=== PATIENT | female | born 1995 | race Caucasian/White ===

== ENCOUNTER 2021-01-23 18:18 | Emergency (ER) | payer MEDICAID ==
[~2021-01-23] VITALS: Ht 162.6 cm; Wt 51.0 kg
[2021-01-23 18:56] LABS: URINE HCG NEGATIVE (NEG)
[2021-01-23 18:57] LABS: CLARITY,URINE TURBID (Clear); COLOR,URINE BROWN (Yellow); GLUCOSE, URINE NEGATIVE (Neg); KETONES,URINE NEGATIVE (Neg); LEUKOCYTE ESTERASE ,URINE TRACE (Neg); NITRITES, URINE NEGATIVE (Neg); OCCULT BLOOD,URINE LARGE (Neg); PH,URINE 5.5 (4.8-8.0); PROTEIN,URINE >=300 mg/dl (Neg); UROBILINOGEN,URINE 0.2 E.U/dL (0.2-1.0)
[2021-01-23 19:00] LABS: UA COLLECTION TYPE CLN CATCH MIDSTREAM
[2021-01-23 19:04] LABS: BASOPHILS # (AUTO) 0.1 X10'3 (0-0.2); BASOPHILS % (AUTO) 1.7 % (0-1); HEMATOCRIT 43.7 % (35.0-45.0); HEMOGLOBIN 15.1 g/dl (12.0-16.0); LYMPHOCYTES # (AUTO) 1.8 X10'3 (1.1-4.8); LYMPHOCYTES % (AUTO) 42.5 % (21-51); MEAN CORPUSCULAR HEMOGLOBIN 32.6 PG (27.0-31.0); MEAN CORPUSCULAR HGB CONC 34.6 g/dL (33.0-36.5); MEAN CORPUSCULAR VOLUME 94.3 FL (78-98); MEAN PLATELET VOLUME 7.2 FL (7.4-10.4); MONOCYTES # (AUTO) 0.2 X10'3 (0-0.9); MONOCYTES % (AUTO) 5.7 % (2-12); NEUTROPHILS # (AUTO) 2.1 X10'3 (1.8-7.7); NEUTROPHILS % (AUTO) 49.1 % (42-75); PLATELET COUNT 316 X10'3 (140-440); RED BLOOD COUNT 4.63 X10'6 (4.20-5.60); RED CELL DISTRIBUTION WIDTH 13.9 % (11.5-14.5); WHITE BLOOD COUNT 4.2 X10'3 (4.5-11.0)
[2021-01-23 19:05] LABS: ALANINE AMINOTRANSFERASE 75 U/L (12-78); ALBUMIN 4.2 G/DL (3.4-5.0); ALKALINE PHOSPHATASE 111 IU/L (46-116); ANION GAP 10 (8-16); ASPARTATE AMINO TRANSFERASE 65 U/L (10-37); BILIRUBIN,TOTAL 0.4 MG/DL (0.1-1.0); BLOOD UREA NITROGEN 7 MG/DL (7-18); BUN/CREATININE RATIO 10.1 (6.6-38.0); CALCIUM 9.7 MG/DL (8.5-10.1); CHLORIDE 104 MMOL/L (99-107); CREATININE 0.69 MG/DL (0.40-0.90); GLUCOSE 97 MG/DL (70-104); LIPASE 90 U/L (73-393); POTASSIUM 3.5 MMOL/L (3.5-5.1); SODIUM 143 MMOL/L (135-145); TOTAL PROTEIN 8.4 G/DL (6.4-8.2); eGFR > 90 ML/MIN
[2021-01-23 19:24] LABS: RBC,URINE TNTC /HPF (0-2)
[2021-01-23 19:25] LABS: BACTERIA,URINE 1+ /HPF (Neg); HYALINE CASTS 0-3 /LPF (NEGATIVE); MUCUS STRANDS MODERATE /LPF (Neg); SQUAMOUS EPITHELIAL CELL,UR MODERATE /LPF (FEW); TRANSITIONAL EPI CELLS,URINE FEW /HPF
[2021-01-23 19:27] LABS: AMORPHOUS URATES 1+
[2021-01-23] MEDS ORDERED: HYDROcodone/acetaminophen 5mg/325mg tablet PO ONE (22:25)
[2021-01-23] MEDS ORDERED: CEPH-585 PO (22:57)
[2021-01-23] MEDS ORDERED: HYDR-3965 PO (23:14)
[2021-01-23 23:16] VITALS: BP 115/76
== END 2021-01-23 23:17 | disposition home or self-care (01) ==
LOC: ER 18:20
DX: R10.84 Generalized abdominal pain (principal); N13.30 Unspecified hydronephrosis; F17.200 Nicotine dependence, unspecified, uncomplicated; F15.90 Other stimulant use, unspecified, uncomplicated; Z87.442 Personal history of urinary calculi; Z98.890 Other specified postprocedural states; Z72.89 Other problems related to lifestyle; Z79.2 Long term (current) use of antibiotics
CPT/HCPCS: 36415; 74176; 80053; 81001; 81025; 83690; 85025; 87088; 99284